=== PATIENT | female | born 1995 | race African-American/Black ===

== ENCOUNTER 2016-11-19 07:51 | Emergency (ER) | payer SELFPAY ==
[~2016-11-19] VITALS: Ht 170.2 cm; Wt 95.0 kg
[~2016-11-19 07:51] MED LIST: IBUP800 PO; PERC5TAB12 PO
[2016-11-19 07:53] VITALS: BP 140/70; PULSE 81; RESP 12; TEMP 98.4; O2SAT 98
[2016-11-19] MEDS ORDERED: POLY10O EACH EYE (08:08)
--- NOTE | 2016-11-19 08:10 | PD ---
HPI Chief Complaint: Eye Problems/Injury Time Seen by Provider: 08:06 Travel History International Travel<30 days: No Contact w/Intl Traveler<30days: No Traveled to known affect area: No History of Present Illness HPI 21-year-old female presents to the emergency Department with complaint of intermittent pain in both of her eyes 6 months. For the past 5 days she has been experiencing the pain which she describes as a burning/itching sensation to her eyes. Denies trauma or known foreign body. Reports clear and purulent drainage from her eyes. Has been waking up in the mornings with both of her eyes crusted. Reports intermittent change in vision with some blurriness, but she denies at this time. She has followed up with her eye doctor in the past 6 months and had her prescription contact lenses changed. She did address her current complaint with the eye doctor and he told her it was most likely allergies. She has tried [id number]-[id number] allergy medications and eye drops with no relief of symptoms. Denies fever, chills, nausea, vomiting. No known allergies. Denies significant past medical history. No other modifying factors or associated signs and symptoms. PFSH Past Medical History Cardiovascular Problems: No Diminished Hearing: No Genitourinary: No Musculoskeletal: No Neurologic: No Psychiatric: No Respiratory: No Immunizations Current: Yes Sickle Cell Disease: No ?: Not Social History Alcohol Use: Yes (SOCIALLY) Tobacco Use: No Substance Use: Yes (MARIJUANA, TODAY) Allergies-Medications (Allergen,Severity, Reaction): Coded Allergies: No Known Allergies (Verified , 11/19/16) Reported Meds & Prescriptions Reported Meds & Active Scripts Active Polytrim Opth Drops (Polymyxin/Trimethoprim Sulfate) 10,000-0.1 Unit/Ml-% Soln 2 Drop EACH EYE Q6HR 7 Days Motrin 800 Mg Tab (Ibuprofen) 800 Mg Tab 800 Mg PO Q8H PRN 10 Days Percocet 5-325 mg (Oxycodone/Acetaminophen) 1 Tab 1 Tab PO Q4H PRN Review of Systems Except as stated in HPI: all other systems reviewed are Neg Physical Exam Narrative GENERAL: Well-nourished, well-developed female patient, in no acute distress SKIN: Warm and dry. HEAD: Atraumatic. Normocephalic. EYES: Pupils equal and round at 3 mm with brisk reaction. PERRLA. EOMI. visual acuity 20/25 bilateral. Bilateral lid eversion with no foreign body noted. Bilateral eye without scleral erythema or lid edema. No orbital tenderness, erythema or cellulitis. Bilateral eye without photophobia. No consensual photophobia. No scleral icterus. Crusted drainage noted to upper and lower eyelashes. Patient has fake eyelashes in place and they appear heavily crusted. ENT: Mucosa pink and moist. Airway patent. NECK: Trachea midline. CARDIOVASCULAR: Regular rate. RESPIRATORY: No accessory muscle use. GASTROINTESTINAL: Rounded. NEUROLOGICAL: Awake and alert. Oriented 3. No obvious cranial nerve deficits. Motor grossly within normal limits. Normal speech. PSYCHIATRIC: Appropriate mood and affect; insight and judgment normal. Data Data Last Documented VS Vital Signs Date Time Temp Pulse Resp B/P Pulse Ox O2 Delivery O2 Flow Rate FiO2 11/19/16 07:53 98.4 81 12 140/70 98 MDM Medical Decision Making Medical Screen Exam Complete: Yes Emergency Medical Condition: Yes Medical Record Reviewed: Yes Differential Diagnosis Allergic conjunctivitis, viral conjunctivitis, bacterial conjunctivitis Narrative Course 21-year-old female history of present illness and physical exam is likely consistent with allergic conjunctivitis. She has been having burning/itching sensation to her eyes intermittently for the past 6 months. Symptoms again started about 5 days ago. Denies any trauma. Eye exam is unremarkable. She does have fake eyelashes someplace and there is heavy crusting noted to the upper and lower eyelashes. Visual acuity with corrective lenses is left 20/25; right 20/50. I will treat the patient with antibiotic eyedrops for possible bacterial conjunctivitis. Instructed patient to follow up with ophthalmology. Polytrim eyedrops prescribed for home. Patient verbalizes understanding and agreement with treatment plan. Patient is medically cleared and stable for discharge. Discussed reasons to return to the emergency department. Instructed patient to follow up with primary care provider. Patient agrees with treatment plan. The patients vital signs are stable and the patient is stable for outpatient follow-up and treatment. Patient discharged home, stable and in no acute distress. Diagnosis Primary Impression: Conjunctivitis Qualified Code: H10.9 - Conjunctivitis of both eyes, unspecified conjunctivitis type Referrals: [facility] Primary Care Physician Patient Instructions: Conjunctivitis (ED), General Instructions Departure Forms: School Release, Return to School Date: Nov 19, 2016 Tests/Procedures Additional Instructions: Conjunctivitis is contagious [id number]-chs-[id number] allergy relief eyedrops as directed and as needed for symptom management Use antibiotic drops as prescribed Apply warm or cool compresses to both eyes for a few minutes several times daily to minimize irritation Avoid triggers, such as allergens, that may irritate your eyes Wash your hands frequently Do not share washcloths, towels, pillows, or any other material that has touched your eyes with any other household members Removed fake eyelashes Change out contact lenses Follow-up with your primary care provider Follow-up with ophthalmology as needed Return to the emergency department immediately with worsening of symptoms Med/Other Pt SpecificInfo: Prescription(s) given Scripts Polymyxin B-Trimethoprim Opth Drops (Polytrim Opth Drops)10,000-0.1 Unit/Ml-% Soln2 Drop EACH EYE Q6HR 7 Days Ref 0 Prov:Genie Messer 11/19/16 Disposition: 01 DISCHARGE HOME Condition: Stable Genie Messer Nov 19, 2016 08:10
== END 2016-11-19 08:19 | disposition home or self-care (01) ==
LOC: NETRI 07:51
DX: H10.9 Unspecified conjunctivitis (principal)
CPT/HCPCS: 99283